=== PATIENT | female | born 1975 | race Caucasian/White ===

== ENCOUNTER 2016-09-26 09:02 | Emergency (ER) | payer SELFPAY ==
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
[2016-09-26 11:33] LABS: ABSOLUTE BASOPHILS # (AUTO) 0.1 10^3/uL (0.0-0.2); ABSOLUTE EOSINOPHILS # (AUTO) 0.2 10^3/uL (0.0-0.6); ABSOLUTE LYMPHOCYTES (AUTO) 1.3 10^3/uL (0.5-4.7); ABSOLUTE MONOCYTES (AUTO) 0.4 10^3/uL (0.1-1.4); ABSOLUTE NEUT (AUTO) 6.4 10^3/uL (1.7-8.2); BASOPHILS % (AUTO) 0.8 % (0-2); EOSINOPHILS % (AUTO) 2.3 % (0-6); HEMATOCRIT 40.3 % (36.0-47.0); HEMOGLOBIN 13.5 g/dL (12.0-15.5); HGB HCT DIFFERENCE 0.2; LYMPHOCYTES % (AUTO) 15.4 % (13-45); MEAN CORPUSCULAR HEMOGLOBIN 29.4 pg (27.0-33.4); MEAN CORPUSCULAR HGB CONC 33.6 g/dL (32.0-36.0); MEAN CORPUSCULAR VOLUME 88 fl (80-97); MONOCYTES % (AUTO) 4.9 % (3-13); RED CELL DISTRIBUTION WIDTH 13.5 % (11.5-14.0); WHITE BLOOD COUNT 8.3 10^3/uL (4.0-10.5)
[2016-09-26 11:35] LABS: SEGMENTED NEUTROPHILS % (AUTO) 76.6 % (42-78)
[2016-09-26 11:54] LABS: ALANINE AMINOTRANSFERASE 24 U/L (9-52); ALBUMIN 3.7 g/dL (3.5-5.0); ALKALINE PHOSPHATASE 87 U/L (38-126); ANION GAP 10 (5-19); ASPARTATE AMINO TRANSFERASE 19 U/L (14-36); BILIRUBIN,DIRECT 0.3 mg/dL (0.0-0.4); BILIRUBIN,TOTAL 0.4 mg/dL (0.2-1.3); BLOOD UREA NITROGEN 8 mg/dL (7-20); CALCIUM 9.1 mg/dL (8.4-10.2); CARBON DIOXIDE 27 mmol/L (22-30); CHLORIDE 106 mmol/L (98-107); CREATININE RESULT 0.58 mg/dL (0.52-1.25); GLUCOSE 94 mg/dL (75-110); POTASSIUM 3.6 mmol/L (3.6-5.0); SODIUM 143.2 mmol/L (137-145); TOTAL PROTEIN 6.6 g/dL (6.3-8.2)
[2016-09-26] MEDS ORDERED: MORPHINE SULFATE 10 MG/ML INJ IV PRN (12:43)
[2016-09-26] MEDS ORDERED: ONDANSETRON HCL INJ/PF 4 MG/2 ML SDV IV ONE (12:44)
[2016-09-26] MEDS ORDERED: NORMAL SALINE 1000 ML 1,000 ML IV PRN (12:44)
[2016-09-26 12:49] LABS: APPEARANCE,URINE CLEAR; BILIRUBIN,URINE NEGATIVE (NEGATIVE); GLUCOSE, URINE NEGATIVE (NEGATIVE); KETONES,URINE NEGATIVE (NEGATIVE); LEUKOCYTE ESTERASE,URINE NEGATIVE (NEGATIVE); NITRITE,URINE NEGATIVE (NEGATIVE); PROTEIN,URINE NEGATIVE (NEGATIVE); URINE SPECIFIC GRAVITY 1.015; UROBILINOGEN,URINE NEGATIVE mg/dL (<2.0)
[2016-09-26 13:21] LABS: CHLAM PCR NOT DETECTED (NOT DETECT)
[2016-09-26 15:57] VITALS: BP 148/86
== END 2016-09-26 15:57 | disposition home or self-care (01) ==
LOC: ER 09:02
DX: R10.30 Lower abdominal pain, unspecified (principal); R10.2 Pelvic and perineal pain; R39.198 Other difficulties with micturition; R39.15 Urgency of urination; R30.0 Dysuria; F17.200 Nicotine dependence, unspecified, uncomplicated; Y09 Assault by unspecified means
CPT/HCPCS: 99284; 96361; 96374; 96375; 36415; 87210; 85025; 80053; 81001; 87491; 87591; 74177; J2270; J2405; J7030

== ENCOUNTER 2017-02-05 13:55 | Emergency (ER) | payer SELFPAY ==
--- NOTE | 2017-02-05 14:34 | ER Document Report ---
ED Medical Screen (RME) - General Chief Complaint: Chest Pain Stated Complaint: CHEST PAIN Time Seen by Provider: 02/05/17 14:17 Mode of Arrival: Wheelchair Information source: Patient TRAVEL OUTSIDE OF THE [place] IN LAST 30 DAYS: No - HPI Patient complains to provider of: Pain, nausea, vomiting Onset: This morning Notes: 02/05/17 14:48 Patient is a 42-year-old female with a history of hypertension, who has not seen a doctor in several years so she is currently not medicated, presents to the emergency room complaining of left-sided chest pain radiating to the shoulder and the arm, it started several hours prior to arrival, while waiting in the emergency emergency room waiting room patient had an episode of nausea and vomiting as well, she does admit to being under a great deal of stress recently, initially thought her symptoms were likely related to stress or anxiety, however became concerned because she has a strong family history of coronary artery disease and therefore came to the emergency room for evaluation - Related Data Allergies/Adverse Reactions: Penicillins Allergy (Verified 02/05/17 14:11) Generalized rash Past Medical History - Past Medical History Cardiac Medical History: Reports: Hx Hypertension Denies: Hx Coronary Artery Disease, Hx Heart Attack Pulmonary Medical History: Denies: Hx Asthma, Hx Bronchitis, Hx COPD, Hx Pneumonia Neurological Medical History: Reports: Hx Cerebrovascular Accident - questionable CVA, 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, Hx Migraine, Hx Seizures Renal/ Medical History: Denies: Hx Peritoneal Dialysis Musculoskeltal Medical History: Reports Hx Arthritis, Reports Hx Musculoskeletal Trauma Psychiatric Medical History: Reports: Hx Depression Traumatic Medical History: Reports: Hx Fractures - ankle Past Surgical History: Reports: Hx Appendectomy, Hx Gynecologic Surgery, Hx Hysterectomy, Hx Orthopedic Surgery - rt & lft ankle, facial, Hx Urinary Tract Surgery - Immunizations Immunizations up to date: No Hx Diphtheria, Pertussis, Tetanus Vaccination: No Physical Exam - Vital signs Vitals: Temp Pulse Resp BP Pulse Ox 98.0 F 81 16 133/83 H 99 02/05/17 14:11 02/05/17 14:11 02/05/17 14:11 02/05/17 14:11 02/05/17 14:11 Course - Vital Signs Vital signs: Temp Pulse Resp BP Pulse Ox 98.0 F 81 16 133/83 H 99 02/05/17 14:11 02/05/17 14:11 02/05/17 14:11 02/05/17 14:11 02/05/17 14:11
[2017-02-05] MEDS ORDERED: ASPIRIN 81 MG TABLET, CHEWABLE PO ONE (14:35)
[2017-02-05] MEDS ORDERED: ONDANSETRON 4 MG TAB.RAPDIS SL ONE (14:35)
--- NOTE | 2017-02-05 15:20 | ER Document Report ---
ED Cardiac <KIMBERLY CORONA - Last Filed: 02/05/17 16:04> - General Mode of Arrival: Wheelchair Information source: Patient TRAVEL OUTSIDE OF THE [place] IN LAST 30 DAYS: No - HPI Patient complains to provider of: Chest pain <REINA BTUCHER - Last Filed: 02/05/17 16:46> - General Chief Complaint: Chest Pain Stated Complaint: CHEST PAIN Time Seen by Provider: 02/05/17 14:17 Notes: Patient is a 42-year-old female presenting to the Emergency Department for chest pain. Patient's pain was onset several hours prior to arrival. Patient's pain is located in her left chest and radiates into her upper back, shoulder and arm. Patient also complains of some sweats and nausea and she had an episode of nausea/vomiting in the emergency waiting room after she arrived. Patient also states she has been under a lot of stress recently. Patient has a family history of CAD. Patient has hypertension but has not seen a physician in several years so she is not being medicated for such. Patient is allergic to penicillin. (REINA BUTCHER) - Related Data Allergies/Adverse Reactions: Penicillins Allergy (Verified 02/05/17 14:11) Generalized rash Past Medical History - General Information source: Patient - Social History Smoking Status: Current Every Day Smoker Chew tobacco use (# tins/day): No Frequency of alcohol use: Occasional Drug Abuse: None Family History: Arthritis, CAD, COPD, CVA, DM, Hyperlipidemia, Hypertension, Malignancy Patient has suicidal ideation: No Patient has homicidal ideation: No - Past Medical History Cardiac Medical History: Reports: Hx Hypertension Neurological Medical History: Reports: Hx Migraine - hemiplegic migraines, Hx Seizures - not being treated Musculoskeltal Medical History: Reports Hx Arthritis Psychiatric Medical History: Reports: Hx Depression Traumatic Medical History: Reports: Hx Fractures - ankle Past Surgical History: Reports: Hx Appendectomy, Hx Hysterectomy, Hx Orthopedic Surgery - rt & lft ankle, facial, Hx Urinary Tract Surgery - bladder tack - Immunizations Immunizations up to date: No Hx Diphtheria, Pertussis, Tetanus Vaccination: No <REINA BUTCHER - Last Filed: 02/05/17 16:46> Review of Systems - Review of Systems Constitutional: See HPI, Diaphoresis EENT: No symptoms reported Cardiovascular: See HPI, Chest pain Respiratory: See HPI, Short of breath Gastrointestinal: See HPI, Nausea, Vomiting Genitourinary: No symptoms reported Female Genitourinary: No symptoms reported Musculoskeletal: No symptoms reported Skin: No symptoms reported Hematologic/Lymphatic: No symptoms reported Neurological/Psychological: No symptoms reported -: Yes All other systems reviewed and negative <REINA BUTCHER - Last Filed: 02/05/17 16:46> Physical Exam <KIMBERLY CORONA - Last Filed: 02/05/17 16:04> <ERIKAOPHELIA ARROYOINE - Last Filed: 02/05/17 16:46> - Vital signs Vitals: Temp Pulse Resp BP Pulse Ox 98.0 F 81 16 133/83 H 99 02/05/17 14:11 02/05/17 14:11 02/05/17 14:11 02/05/17 14:11 02/05/17 14:11 - Notes Notes: GENERAL: Alert, interacts well. No acute distress. HEAD: Normocephalic, atraumatic. EYES: Appear normal. Pupils equal, round, and reactive to light. ENT: Moist mucus membranes, tongue midline. NECK: Full range of motion. Supple. Trachea midline. LUNGS: Clear to auscultation bilaterally, no wheezes, rales, or rhonchi. No respiratory distress. Left anterior chest wall exquisitely tender to palpation. Right side is nontender. HEART: Regular rate and rhythm. No murmurs, gallops, or rubs. ABDOMEN: Soft, non-tender. Non-distended. Normal bowel sounds. EXTREMITIES: Moves all 4 extremities spontaneously. Normal strength. No edema. Left shoulder and left upper arm are exquisitely tender to palpate. Right arm and shoulder are non-tender. NEUROLOGICAL: Alert and oriented x3. Normal speech. No focal neurological deficits. GSC 15. PSYCH: Normal affect, depressed SKIN: Warm, dry, normal turgor. No rashes or lesions noted. (GUADALUPEOPHELIAREINA) Course - Laboratory Result Diagrams: 02/05/17 15:00 02/05/17 15:00 - Diagnostic Test Radiology reviewed: Image reviewed, Reports reviewed - Chest x-ray is unremarkable - EKG Interpretation by Ri EKG shows normal: Sinus rhythm, [place], Intervals, QRS Complexes, ST-T Waves Rate: Normal - 74 Rhythm: NSR <KIMBERLY CORONA - Last Filed: 02/05/17 16:04> - Laboratory Result Diagrams: 02/05/17 15:00 02/05/17 15:00 <REINA BUTCHER - Last Filed: 02/05/17 16:46> - Vital Signs Vital signs: Temp Pulse Resp BP Pulse Ox 98.0 F 81 18 157/88 H 97 02/05/17 16:01 02/05/17 14:11 02/05/17 16:01 02/05/17 16:01 02/05/17 16:01 - Laboratory Laboratory results interpreted by me: 02/05/17 02/05/17 02/05/17 14:41 15:00 15:00 WBC 11.0 H Potassium 3.5 L Urine Urobilinogen 2.0 H Discharge <KIMBERLY CORONA - Last Filed: 02/05/17 16:04> <REINA BUTCHER - Last Filed: 02/05/17 16:46> - Discharge Clinical Impression: Chest wall pain Condition: Stable Disposition: HOME, SELF-CARE Additional Instructions: Chest Wall Pain: Your chest pain has been diagnosed as coming from the chest wall. This is often caused by straining the muscles or joints in the chest during physical activity, direct trauma, coughing, or vigorous vomiting. Persons with arthritis are especially prone to this type of pain, due to inflammation of the cartilage joints near the breast bone. Occasionally, no cause can be found. Rest from strenuous physical activity. This kind of chest pain is usually made worse by movement of the chest. Depending on the symptoms, we may prescribe medicine for pain, muscle relaxation, and antiinflammatory effects. If the pain is new, and seems to be due to muscle strain, cold packs can help. Otherwise, apply gentle warmth to the painful area for 15 minutes every hour or two. You should contact the doctor immediately if things change. Further evaluation is needed if you develop a fever or cough, if the nature of the pain changes, or if you become short of breath. Referrals: DAGMAR ACOSTA MD [Primary Care Provider] - Follow up as needed Scribe Attestation: 02/05/17 16:03 I personally performed the services described in the documentation, reviewed and edited the documentation which was dictated to the scribe in my presence, and it accurately records my words and actions. (KIMBERLY CORONA) Scribe Documentation - Scribe Written by Scribe:: Amira Otoole 02/05/17 15:49 acting as scribe for :: Danielle <REINA BUTCHER - Last Filed: 02/05/17 16:46>
[2017-02-05 15:24] LABS: ABSOLUTE BASOPHILS # (AUTO) 0.1 10^3/uL (0.0-0.2); ABSOLUTE LYMPHOCYTES (AUTO) 2.2 10^3/uL (0.5-4.7); ABSOLUTE MONOCYTES (AUTO) 0.6 10^3/uL (0.1-1.4); ABSOLUTE NEUT (AUTO) 8.2 10^3/uL (1.7-8.2); BASOPHILS % (AUTO) 0.6 % (0-2); EOSINOPHILS % (AUTO) 0.4 % (0-6); HEMATOCRIT 41.3 % (36.0-47.0); HEMOGLOBIN 14.2 g/dL (12.0-15.5); HGB HCT DIFFERENCE 1.3; LYMPHOCYTES % (AUTO) 19.5 % (13-45); MEAN CORPUSCULAR HEMOGLOBIN 29.5 pg (27.0-33.4); MEAN CORPUSCULAR HGB CONC 34.4 g/dL (32.0-36.0); MEAN CORPUSCULAR VOLUME 86 fl (80-97); RED BLOOD COUNT 4.82 10^6/uL (3.72-5.28); RED CELL DISTRIBUTION WIDTH 13.2 % (11.5-14.0); SEGMENTED NEUTROPHILS % (AUTO) 74.5 % (42-78)
[2017-02-05 15:28] LABS: APPEARANCE,URINE SLIGHTLY-CLOUDY; BILIRUBIN,URINE NEGATIVE (NEGATIVE); GLUCOSE, URINE NEGATIVE (NEGATIVE); KETONES,URINE NEGATIVE (NEGATIVE); LEUKOCYTE ESTERASE,URINE NEGATIVE (NEGATIVE); NITRITE,URINE NEGATIVE (NEGATIVE); PROTEIN,URINE NEGATIVE (NEGATIVE); URINE SPECIFIC GRAVITY 1.009
[2017-02-05 15:30] LABS: ALANINE AMINOTRANSFERASE 24 U/L (9-52); ALBUMIN 4.3 g/dL (3.5-5.0); ALKALINE PHOSPHATASE 120 U/L (38-126); ANION GAP 12 (5-19); ASPARTATE AMINO TRANSFERASE 14 U/L (14-36); BILIRUBIN,DIRECT 0.4 mg/dL (0.0-0.4); BILIRUBIN,TOTAL 0.5 mg/dL (0.2-1.3); BLOOD UREA NITROGEN 8 mg/dL (7-20); CALCIUM 9.6 mg/dL (8.4-10.2); CARBON DIOXIDE 24 mmol/L (22-30); CHLORIDE 104 mmol/L (98-107); CREATINE KINASE 89 U/L (30-135); CREATININE RESULT 0.72 mg/dL (0.52-1.25); GLUCOSE 100 mg/dL (75-110); POTASSIUM 3.5 mmol/L (3.6-5.0); SODIUM 140.4 mmol/L (137-145); TOTAL PROTEIN 7.2 g/dL (6.3-8.2)
--- NOTE | 2017-02-05 15:41 | RADIOLOGY REPORT (SQ) ---
EXAM DESCRIPTION: CHEST PA/LAT COMPLETED DATE/TIME: 02/05/2017 3:29 pm REASON FOR STUDY: cp COMPARISON: 12/04/2014 EXAM PARAMETERS: NUMBER OF VIEWS: two views TECHNIQUE: Digital Frontal and Lateral radiographic views of the chest acquired. RADIATION DOSE: NA LIMITATIONS: none FINDINGS: LUNGS AND PLEURA: No opacities, masses or pneumothorax. No pleural effusion. MEDIASTINUM AND HILAR STRUCTURES: No masses or contour abnormalities. HEART AND VASCULAR STRUCTURES: Heart normal size. No evidence for failure. BONES: No acute findings. HARDWARE: None in the chest. OTHER: No other significant finding. IMPRESSION: NO SIGNIFICANT RADIOGRAPHIC FINDING IN THE CHEST. TECHNICAL DOCUMENTATION: JOB ID: [id number] [employer]- All Rights Reserved
[2017-02-05 15:45] LABS: CREATINE KINASE MB 0.29 ng/mL (<4.55)
[2017-02-05 15:48] LABS: TROPONIN I < 0.012 ng/mL
[2017-02-05 16:15] VITALS: BP 157/88
--- NOTE | 2017-02-06 03:36 | EKG REPORT ---
SEVERITY:- NORMAL ECG - SINUS RHYTHM : Confirmed by: Rosa M Pearl MD 06-Feb-2017 03:36:16
== END 2017-02-05 16:15 | disposition home or self-care (01) ==
LOC: ER 13:55
DX: R07.89 Other chest pain (principal); R06.02 Shortness of breath; R61 Generalized hyperhidrosis; R11.2 Nausea with vomiting, unspecified; I10 Essential (primary) hypertension; F17.200 Nicotine dependence, unspecified, uncomplicated; Z82.49 Family history of ischemic heart disease and other diseases of the circulatory system; Z88.0 Allergy status to penicillin
CPT/HCPCS: 93005; 99285; 36415; 82553; 82550; 83690; 85025; 80053; 81001; 84484; 71020; 93010; S0119